=== PATIENT | male | born 1960 | race Asian ===

== ENCOUNTER 2017-07-06 13:34 | Inpatient (IN) | payer OTHER ==
[~2017-07-06] VITALS: Ht 172.7 cm; Wt 78.5 kg
[2017-07-06 15:33] LABS: BASOPHIL % 1.1 % (0-2); PLATELET COUNT 178 x10^3mcL (130-400); RED CELL DISTRIBUTION WIDTH 13.4 % (11.5-14.5)
[2017-07-06 15:38] LABS: CALCIUM 8.4 mg/dL (8.5-10.1); CARBON DIOXIDE 26.3 mmol/L (21-32); CHLORIDE SERUM 104 mmol/L (98-107); CREATININE SERUM 0.9 mg/dL (0.7-1.3); GFR1 > 60 mL/min; GLUCOSE SERUM 237 mg/dL (74-106); POTASSIUM SERUM 3.8 mmol/L (3.5-5.1); SODIUM SERUM 138 mmol/L (136-145)
[2017-07-06] MEDS ORDERED: METFORMIN HCL1000 MG PO (15:47)
[2017-07-06] MEDS ORDERED: NOVI SC (15:47)
[2017-07-06] MEDS ORDERED: HCTZ/LISINOPRIL1 TAB PO (15:48)
[2017-07-06 15:49] LABS: ALBUMIN 3.5 g/dL (3.4-5.0); ALKALINE PHOSPHATASE 55 U/L (46-116); ALT/SGPT 24 U/L (16-63); AST/SGOT 13 U/L (15-37); BILIRUBIN TOTAL 0.4 mg/dL (0.20-1.00); TOTAL PROTEIN, SERUM 6.9 g/dL (6.4-8.2)
[2017-07-06] MEDS ORDERED: ATORVASTATIN CA40 M1 PO (15:49)
[2017-07-06] MEDS ORDERED: LISINOPRIL20 MG PO (16:13)
[2017-07-06] MEDS ORDERED: ATORVASTATIN CA20 M1 PO (16:14)
[2017-07-06 16:19] LABS: MAGNESIUM 1.6 mg/dL (1.8-2.4); PHOSPHOROUS 3.7 mg/dL (2.5-4.9)
[2017-07-06 16:22] LABS: CHOLESTEROL/HDL RATIO 3.1
[2017-07-06 16:27] LABS: FREE T4 1.13 ng/dL (0.76-1.46); FREE THYROXINE INDEX 2.7 ug/dL (1.4-4.5); T3 TOTAL 0.99 ng/mL; T4(THYROXINE) 7.8 ug/dL (4.7-13.3)
[2017-07-06 19:00] VITALS: BP 119/86
[2017-07-06 21:18] VITALS: BP 119/78
[2017-07-06 21:35] LABS: microscopic required? NO
[2017-07-06 21:58] LABS: UA SPECIFIC GRAVITY <=1.005 (1.005-1.035); urine erythrocyte NEGATIVE (NEGATIVE)
[2017-07-06 22:09] LABS: AMPHETAMINE QUAL UR NONE DETECTED (NEG <=1000)
[2017-07-07] VITALS (7 sets, daily range): BP systolic 116–145; BP diastolic 67–88
[2017-07-07 06:04] LABS: BASOPHIL % 0.8 % (0-2); PLATELET COUNT 175 x10^3mcL (130-400); RED CELL DISTRIBUTION WIDTH 13.5 % (11.5-14.5)
[2017-07-07 06:14] LABS: CALCIUM 8.6 mg/dL (8.5-10.1); CARBON DIOXIDE 29.3 mmol/L (21-32); CHLORIDE SERUM 108 mmol/L (98-107); CREATININE SERUM 0.9 mg/dL (0.7-1.3); GFR1 > 60 mL/min; GLUCOSE SERUM 167 mg/dL (74-106); MAGNESIUM 2.2 mg/dL (1.8-2.4); PHOSPHOROUS 3.7 mg/dL (2.5-4.9); POTASSIUM SERUM 4.3 mmol/L (3.5-5.1); SODIUM SERUM 142 mmol/L (136-145)
[2017-07-08 05:51] VITALS: BP 132/80
[2017-07-08 06:44] LABS: CALCIUM 8.7 mg/dL (8.5-10.1); CARBON DIOXIDE 29.1 mmol/L (21-32); CHLORIDE SERUM 106 mmol/L (98-107); GFR1 > 60 mL/min; GLUCOSE SERUM 191 mg/dL (74-106); POTASSIUM SERUM 4.2 mmol/L (3.5-5.1); SODIUM SERUM 142 mmol/L (136-145)
[2017-07-08 07:48] LABS: BASOPHIL % 0.6 % (0-2); PLATELET COUNT 184 x10^3mcL (130-400); RED CELL DISTRIBUTION WIDTH 13.5 % (11.5-14.5)
[2017-07-08 09:45] VITALS: BP 123/82
[2017-07-08] MEDS ORDERED: ASPIR 8181 MG PO (10:35)
[2017-07-08 12:00] VITALS: BP 123/82
== END 2017-07-08 13:20 | disposition home or self-care (01) | DRG 392 ==
LOC: ED 13:34 → DU 15:46
PROVIDERS: Emergency Medicine; ADMIT Family Medicine
DX: K21.9 Gastro-esophageal reflux disease without esophagitis (principal); D68.69 Other thrombophilia; E11.65 Type 2 diabetes mellitus with hyperglycemia; E83.51 Hypocalcemia; E83.42 Hypomagnesemia; K86.9 Disease of pancreas, unspecified; I10 Essential (primary) hypertension; E78.5 Hyperlipidemia, unspecified; Z79.4 Long term (current) use of insulin; Z68.26 Body mass index [BMI] 26.0-26.9, adult; Z79.84 Long term (current) use of oral hypoglycemic drugs
CPT/HCPCS: 82962; 83880; 84439; J1815; J2270; J2405; J3475; J3490; J7030; J7050; Q0092; Q9967